=== PATIENT | male | born 1965 | race Caucasian/White ===

== ENCOUNTER 2017-12-14 13:13 | Emergency (ER) | payer OTHER ==
[~2017-12-14] VITALS: Ht 165.1 cm; Wt 65.9 kg
[2017-12-14] MEDS ORDERED: ATOR40TA28 PO (13:19)
[2017-12-14] MEDS ORDERED: AMLO-512 PO (13:19)
[2017-12-14] MEDS ORDERED: LORazepam 1 MG TABLET PO ONE (15:00)
[2017-12-14 16:31] VITALS: BP 154/109
== END 2017-12-14 16:59 | disposition home or self-care (01) ==
LOC: EMS 13:16
DX: I10 Essential (primary) hypertension (principal); F41.9 Anxiety disorder, unspecified; G89.29 Other chronic pain; R06.02 Shortness of breath; E78.00 Pure hypercholesterolemia, unspecified
CPT/HCPCS: 93005; 99285; 99406

== ENCOUNTER 2018-05-28 12:25 | Emergency (ER) | payer OTHER ==
[~2018-05-28] VITALS: Ht 165.1 cm; Wt 65.9 kg
[~2018-05-28 12:25] MED LIST: AMLO-512 PO; ATOR40TA28 PO
[2018-05-28] MEDS ORDERED: COD30 PO (12:45)
[2018-05-28] MEDS ORDERED: GABA-529 PO (12:45)
[2018-05-28] MEDS ORDERED: AMIT10TA6 PO (12:45)
[2018-05-28] MEDS ORDERED: GABA-531 PO (13:30)
[2018-05-28] MEDS ORDERED: AMIT50TA3 PO (13:30)
[2018-05-28] MEDS ORDERED: KETOROLAC TROMETHAMINE 30 MG/ML VIAL IM ONE (13:30)
[2018-05-28 14:30] VITALS: BP 158/102
== END 2018-05-28 14:46 | disposition home or self-care (01) ==
LOC: EMS 12:26
DX: M75.31 Calcific tendinitis of right shoulder (principal); M75.101 Unspecified rotator cuff tear or rupture of right shoulder, not specified as traumatic; I10 Essential (primary) hypertension; E78.00 Pure hypercholesterolemia, unspecified
CPT/HCPCS: 73030; 96372; 99284; J1885

== ENCOUNTER 2018-06-12 17:12 | Emergency (ER) | payer OTHER ==
[~2018-06-12] VITALS: Ht 165.1 cm; Wt 65.9 kg
[~2018-06-12 17:12] MED LIST changes: +AMIT50TA3 PO; +COD30 PO; +GABA-531 PO
[2018-06-12] MEDS ORDERED: HYDR-309 (17:18)
[2018-06-12 18:16] LABS: APPEARANCE,URINE CLEAR (CLEAR); BILIRUBIN,URINE NEGATIVE (NEGATIVE); GLUCOSE, URINE (UA) NEGATIVE (NEGATIVE); KETONES,URINE NEGATIVE (NEGATIVE); LEUKOCYTE ESTERASE ,URINE TRACE (NEGATIVE); NITRATE,URINE NEGATIVE (NEGATIVE); OCCULT BLOOD,URINE LARGE (NEGATIVE); PROTEIN,URINE NEGATIVE (NEGATIVE); UROBILINOGEN,URINE 0.2 mg/dL (<=1.0)
[2018-06-12 18:25] LABS: RBC,URINE 26-50 /HPF (0-2)
[2018-06-12 18:26] LABS: BACTERIA,URINE None Seen /HPF (None Seen); SQUAMOUS EPITHELIAL CELL,UR Rare /LPF (None Seen)
[2018-06-12 18:27] LABS: CALCIUM OXALATE CRYSTALS,UR Few /LPF (None Seen)
[2018-06-12 20:20] VITALS: BP 140/95
[2018-06-12] MEDS ORDERED: HYDR-4065 PO (20:26)
[2018-06-12] MEDS ORDERED: KETOROLAC TROMETHAMINE 10 MG TABLET PO ONE (20:30)
== END 2018-06-12 20:54 | disposition home or self-care (01) ==
LOC: EMS 17:16
DX: N20.9 Urinary calculus, unspecified (principal); I10 Essential (primary) hypertension; E78.00 Pure hypercholesterolemia, unspecified; M19.90 Unspecified osteoarthritis, unspecified site; Z79.899 Other long term (current) drug therapy
CPT/HCPCS: 99283